=== PATIENT | male | born 1975 ===

== ENCOUNTER 2024-07-19 04:06 | Day surgery (SDC) | payer BC ==
[2024-07-15 15:42] VITALS: BMI 29.4
[2024-07-19] MEDS ORDERED: BACITRACIN ZINC 15 GM TUBE TOPICAL OINTMENT ONE (12:27)
[2024-07-19] MEDS ORDERED: BUPIVACAINE HCL/PF 0.25% (2.5MG/ML) 10 ML VIAL ONE (12:27)
[2024-07-19] MEDS ORDERED: MIDAZOLAM HCL 2 MG/2 ML SINGLE DOSE VIAL ONE (12:57)
[2024-07-19] MEDS ORDERED: PROPOFOL 20 ML ONE (12:57)
[2024-07-19] MEDS ORDERED: LIDOCAINE HCL/PF 2% SDV 5ML VIAL ONE (12:57)
[2024-07-19] MEDS ORDERED: ONDANSETRON 4 MG/2 ML VIAL ONE (13:11)
[2024-07-19] MEDS ORDERED: ceFAZolin SODIUM 1 GM VIAL ONE (13:11)
[2024-07-19] MEDS ORDERED: KETOROLAC TROMETHAMINE 30 MG/1 ML VIAL ONE (13:11)
[2024-07-19] MEDS ORDERED: DEXAMETHASONE SOD PHOSPHATE 4 MG/1 ML VIAL ONE (13:11)
[2024-07-19] MEDS: ceFAZolin SODIUM 1 GM VIAL IVPB ONE (13:14)
[2024-07-19] MEDS: BUPIVACAINE HCL/PF 0.25% (2.5MG/ML) 10 ML VIAL IJ ONE ×2 (13:15)
[2024-07-19] MEDS: BACITRACIN ZINC 15 GM TUBE TOPICAL OINTMENT TP ONE ×2 (13:21→13:45)
[2024-07-19] MEDS ORDERED: ONDANSETRON 4 MG/2 ML VIAL IVPUSH PRN (13:46)
[2024-07-19] MEDS ORDERED: PROMETHAZINE HCL 25 MG/1 ML VIAL IVPB PRN (13:46)
[2024-07-19] MEDS ORDERED: oxyCODONE HCL 5 MG TABLET PO PRN ×2 (13:46)
[2024-07-19] MEDS ORDERED: LACTATED RINGERS SOLUTION 1,000 ML IV SCH (14:00)
[2024-07-19] MEDS ORDERED: ACETAMINOPHEN INJECTION 100 ML ONE (14:30)
[2024-07-19] MEDS: ACETAMINOPHEN 1000 MG/100 ML BAG IVPB ONE (14:33)
[2024-07-19 14:59] VITALS: RESP 20
[2024-07-19 15:45] VITALS: BP 134/80; PULSE 64; TEMP 97.1
== END 2024-07-19 15:35 | disposition home or self-care (01) ==
LOC: JASU-SURG 04:06
PROVIDERS: ATTEND Urology
PROC: 0VTTXZZ Resection of Prepuce, External Approach (ICD-10-PCS; principal; 2024-07-19 13:00)
DX: N47.1 Phimosis (principal)
CPT/HCPCS: 82962; 88304-TC; 94760; J0131